=== PATIENT | female | born 1960 | race African-American/Black ===

== ENCOUNTER 2023-06-29 10:51 | Outpatient (CLI) | payer MEDICAID, SELFPAY | END 2023-06-29 10:52 | disposition home or self-care (01) | LOC: INJ CL 10:57 | PROVIDERS: Visit Provider Family Medicine | DX: M54.16 Radiculopathy, lumbar region (principal); M51.36 Other intervertebral disc degeneration, lumbar region | CPT/HCPCS: 62323; J0702; Q9966 ==

== ENCOUNTER 2023-11-05 10:59 | Outpatient (CLI) | payer MEDICAID, SELFPAY | END 2023-11-05 11:00 | disposition home or self-care (01) | LOC: INJ CL 11:01 | PROVIDERS: Visit Provider Family Medicine | DX: M54.16 Radiculopathy, lumbar region (principal); M51.36 Other intervertebral disc degeneration, lumbar region | CPT/HCPCS: 64483; J1100; Q9966 ==